=== PATIENT | female | born 1990 | race Caucasian/White ===

== ENCOUNTER 2018-06-21 14:47 | Emergency (ER) | payer OTHER ==
[~2018-06-21] VITALS: Ht 165.1 cm; Wt 84.8 kg
[2018-06-21] MEDS ORDERED: BCP (15:04)
[2018-06-21] MEDS ORDERED: UNICOMPLEX M TA1 TA1 PO (15:04)
[2018-06-21 15:21] LABS: URINE BILIRUBIN NEGATIVE (Negative); URINE BLOOD TRACE (Negative); URINE CLARITY CLEAR; URINE COLOR YELLOW; URINE GLUCOSE-RANDOM NEGATIVE (Negative); URINE KETONES NEGATIVE (Negative); URINE LEUKOCYTES TRACE (Negative); URINE NITRITE NEGATIVE (Negative); URINE PROTEIN NEGATIVE (Negative); URINE SPECIFIC GRAVITY <= 1.005 (1.005-1.030); URINE UROBILINOGEN 0.2 E.U./dl (0.2-1.0)
[2018-06-21 15:36] LABS: ABSOLUTE BASOPHILS 0.1 thou/uL (0.0-0.2); ABSOLUTE LYMPHOCYTES 1.8 thou/uL (0.8-5.3); ABSOLUTE MONOCYTES 0.6 thou/uL (0.0-1.2); BASOPHILS 0.8 %; EOSINOPHILS 0.3 %; HEMATOCRIT 40.6 % (37.0-47.0); HEMOGLOBIN 13.6 gm/dL (12.0-15.0); LYMPHOCYTES 21.2 %; MCH 28.8 pg (26.0-34.0); MCHC 33.6 g/dL (28.0-37.0); MCV 85.7 fL (80.0-100.0); MONOCYTES 6.9 %; MPV 7.2 fl. (7.2-11.1); NUCLEATED RBCS 0 /100WBC; PLATELET COUNT* 326 thou/uL (150-400); POLYS 70.8 %; RBC 4.74 mil/uL (4.20-5.00); RDW-CV 12.7 % (10.5-14.5); WBC 8.5 thou/uL (4.0-11.0)
[2018-06-21 15:43] LABS: CALCIUM 8.7 mg/dL (8.5-10.1); CREATININE 0.7 mg/dL (0.6-1.3); POTASSIUM 3.6 mmol/L (3.5-5.1)
[2018-06-21 15:46] LABS: SQUAMOUS >10 Many /LPF (0-3)
[2018-06-21 15:47] LABS: BACTERIA 1-9 Few /HPF (None Seen); CASTS None Seen /LPF (None Seen); CRYSTALS None Seen /LPF (None Seen); URINE RBC 0-2 Rare /HPF (0-2); URINE WBC 0-5 Rare /HPF (0-5)
[2018-06-21 15:47] LABS: ALBUMIN 3.4 g/dL (3.4-5.0); TOTAL BILIRUBIN 0.2 mg/dL (<0.1-1.0); TOTAL PROTEIN 7.6 g/dL (6.4-8.2)
[2018-06-21] MEDS ORDERED: AUGMENTIN 875-1 EACH PO (16:30)
[2018-06-21 17:04] VITALS: BP 131/81
== END 2018-06-21 17:05 | disposition home or self-care (01) ==
LOC: M.ERS 14:47
DX: R10.32 Left lower quadrant pain (principal); I88.9 Nonspecific lymphadenitis, unspecified; Z88.2 Allergy status to sulfonamides

== ENCOUNTER 2018-06-26 22:43 | Emergency (ER) | payer OTHER ==
[~2018-06-26] VITALS: Ht 165.1 cm; Wt 83.9 kg
[~2018-06-26 22:43] MED LIST: AUGMENTIN 875-1 EACH PO; BCP; UNICOMPLEX M TA1 TA1 PO
[2018-06-26 23:23] LABS: URINE BILIRUBIN NEGATIVE (Negative); URINE BLOOD TRACE (Negative); URINE CLARITY CLEAR; URINE COLOR STRAW; URINE GLUCOSE-RANDOM NEGATIVE (Negative); URINE KETONES NEGATIVE (Negative); URINE LEUKOCYTES-REFLEX NEGATIVE (Negative); URINE NITRITE-REFLEX NEGATIVE (Negative); URINE PROTEIN NEGATIVE (Negative); URINE SPECIFIC GRAVITY <= 1.005 (1.005-1.030); URINE UROBILINOGEN 0.2 E.U./dl (0.2-1.0)
[2018-06-26 23:26] VITALS: BP 135/78
== END 2018-06-26 23:27 | disposition home or self-care (01) ==
LOC: M.ERS 22:43
PROVIDERS: Family Medicine
DX: R10.12 Left upper quadrant pain (principal); Z88.2 Allergy status to sulfonamides